=== PATIENT | female | born 1995 | race Native Hawaiian/Other Pacific Islander ===

== ENCOUNTER → 2019-10-11 | Outpatient (CLI) | payer BC ==
--- NOTE | 2019-10-11 13:59 | Diagnostic Imaging Report ---
INDICATION: Bilateral hip pain. TIME OF EXAM: 1:14 p.m. AP view of the pelvis and multiple views of the bilateral hips were obtained. FINDINGS: Femoroacetabular alignment is normal bilaterally. There appears to be some foreshortening of the femoral necks bilaterally. There is some slight flattening of the articular surfaces of the femoral heads. Findings are suggestive of bilateral hip dysplasia. There is some superior joint space narrowing bilaterally with some sclerosis of the acetabulum. No fractures are seen. Rami appear to be intact. The SI joints and symphysis are intact. IMPRESSION: Findings suggestive of bilateral hip dysplasia. No acute bony abnormality is detected. Dictated by: Dictated on workstation # [id number]
== END ==
LOC: RAD FS 13:25
PROVIDERS: ATTEND Nurse Practitioner
DX: Z00.00 Encounter for general adult medical examination without abnormal findings (principal); M25.551 Pain in right hip; M25.552 Pain in left hip
CPT/HCPCS: 73521

== ENCOUNTER 2020-04-20 09:22 | Emergency (ER) | payer SELFPAY ==
--- OUTSIDE RECORDS SUMMARY | 2020-04-20 09:26 | XMS REPORT ---
Author Author Dennis ROCHA DAI Organization [facility] Address [address] [place] [address] Care Team Providers Care Company Controller Name Role Phone DAI ROCHA Unavailable PROBLEMS Type Condition ICD9-CM Code [id number] Code Onset Dates Condition S tatus SNOMED Code Problem Dental examination Z01.20 Active 1 [id number] ALLERGIES No Known Allergies SOCIAL HISTORY Never Assessed PLAN OF CARE Activity Details Follow Up prn- needs to est. care Reas on: VITAL SIGNS Height 60 in 2016-11-29 Weight 120.8 lbs 2016-11-29 Temperature 98.1 degrees Fahrenheit 2016-11-29 Heart Rate 64 bpm 2016-11-29 Respiratory Rate 18 2016-11-29 BMI 23.59 kg/m2 2016-11-29 Blood pressure systolic 108 mmHg 2016-11-29 Blood pressure diastolic 64 mmHg 2016-11-29 MEDICATIONS Medication Instructions Dosage Frequency Start Date End Date Duration S tatus Aleve 220 MG Orally every 12 hrs 1 tablet as needed 12h Active RESULTS Name Result Date Reference Range INFLUENZA A & B (IN HOUSE) 2016-11-29 INFLUENZA A Negative INFLUENZA B Negative Control + Lot # [id number] Exp date 09/16/18 STREP A (IN HOUSE) 2016-11-29 STREP A Negative Control + Lot # [id number] Exp date 06/25/18 MUMPS PCR ([facility]- APPROVAL REQUIRED) MUMPS IgG 2016-11-29 Mumps Abs, IgG >300.0 Immune >10.9 MUMPS IgM 2016-11-29 Mumps Antibodies, IgM <0.80 0.00-0.79 PROCEDURES Procedure Date Ordered Result Body Site INFLUENZA ASSAY W/OPTIC Nov 29, 2016 STREP A ASSAY W/OPTIC Nov 29, 2016 MUMPS ANTIBODY Nov 29, 2016 VENIPUNCT, ROUTINE* Nov 29, 2016 IMMUNIZATIONS No Known Immunizations MEDICAL (GENERAL) HISTORY Type Description Date Medical History polio Surgical History bilateral hip surgery due to polio 2003 Hospitalization History post surgery 2003
--- OUTSIDE RECORDS SUMMARY | 2020-04-20 09:26 | XMS REPORT ---
Author Author Dennis CORADO [facility] Address [address] [place] [address] Care Team Providers Care Indirect Fire Infantryman Name Role Phone CONNIE CORADO Unavailable PROBLEMS Unknown Problems ALLERGIES Substance Reaction Event Type Date Status papaya rash Non Drug Allergy Dec, Active ENCOUNTERS Encounter Location Date Diagnosis [facility] [address] [address] Apr, Pain in right hip M25.551 an d Pain in left hip M25.552 [facility] [address] [phone] February, Diarrhea, unspecified type R 19.7 [facility] [address] [place] [address] Dec, Pre-employment health screening examinat ion Z02.1 [place] [address] [place] [id number] [place] [id number] Nov, [place] [address] [place] [id number] [place] [phone] Nov, Dental examination Z01.20 [facility] [address] [place] [place] [id number] [place] [phone] Nov, Acute parotitis K11.21 and M umps parotitis B26.9 IMMUNIZATIONS No Known Immunizations SOCIAL HISTORY Never Assessed REASON FOR VISIT PRE EMPLOYMENT PHYSICAL---elamfu/ma, and drug screen PLAN OF CARE Activity Details Follow Up prn Reason: Pending Test URINE DRUG SCREEN (IN HOUSE) VITAL SIGNS Height 61 in 2018-12-27 Weight 128 lbs 2018-12-27 Temperature 98.1 degrees Fahrenheit 2018-12-27 Heart Rate 70 bpm 2018-12-27 Respiratory Rate 18 2018-12-27 Oximetry 99 % 2018-12-27 BMI 24.18 kg/m2 2018-12-27 Blood pressure systolic 110 mmHg 2018-12-27 Blood pressure diastolic 64 mmHg 2018-12-27 MEDICATIONS Medication Instructions Dosage Frequency Start Date End Date Duration S boni Aleve 220 MG Orally every 12 hrs 1 tablet as needed 12h Active RESULTS No Results PROCEDURES Procedure Date Ordered Result Body Site DRUG TEST PRSMV DIR OPT OBS December 27, 2018 VISUAL ACUITY SCREEN December 27, 2018 INSTRUCTIONS MEDICATIONS ADMINISTERED No Known Medications MEDICAL (GENERAL) HISTORY Type Description Date Medical History polio Surgical History bilateral hip surgery due to polio 2003 Hospitalization History post surgery 2003
--- OUTSIDE RECORDS SUMMARY | 2020-04-20 09:26 | XMS REPORT ---
Author Author Dennis BUCK [facility] Address [address] [place] [address] Care Team Providers Care Marketing Information Coordinator Name Role Phone KONRAD BUCK Unavailable PROBLEMS Type Condition ICD9-CM Code [id number] Code Onset Dates Condition S tatus SNOMED Code Problem Dental examination Z01.20 Active 1 [id number] ALLERGIES No Known Allergies SOCIAL HISTORY Never Assessed PLAN OF CARE Activity Details Follow Up 1m Reason:dental new pt. est ablish care. VITAL SIGNS Blood pressure systolic 104 mmHg 2016-11-29 Blood pressure diastolic 64 mmHg 2016-11-29 MEDICATIONS Medication Instructions Dosage Frequency Start Date End Date Duration S tatus Aleve 220 MG Orally every 12 hrs 1 tablet as needed 12h Active RESULTS No Results PROCEDURES Procedure Date Ordered Result Body Site INTRAORL-PERIAPICAL 1 FILM [id number] Nov 29, 2016 PANORAMIC FILM SEE ALSO CODE [id number] Nov 29, 2016 Dental no charge Nov 29, 2016 IMMUNIZATIONS No Known Immunizations MEDICAL (GENERAL) HISTORY Type Description Date Medical History polio Surgical History bilateral hip surgery due to polio 2003 Hospitalization History post surgery 2003
--- OUTSIDE RECORDS SUMMARY | 2020-04-20 09:26 | XMS REPORT ---
Author Author Dennis ROCHA Organization [facility] Address [address] [place] [address] Care Team Providers Care Boring Machine Operator Name Role Phone DAI ROCHA Unavailable PROBLEMS Type Condition ICD9-CM Code ZLV71-ZR Code Onset Dates Condition S tatus SNOMED Code Problem Dental examination Z01.20 Active 1 [id number] ALLERGIES No Information SOCIAL HISTORY Never Assessed PLAN OF CARE VITAL SIGNS MEDICATIONS Unknown Medications RESULTS No Results PROCEDURES No Known procedures IMMUNIZATIONS No Known Immunizations MEDICAL (GENERAL) HISTORY Type Description Date Medical History polio Surgical History bilateral hip surgery due to polio 2003 Hospitalization History post surgery 2003
--- OUTSIDE RECORDS SUMMARY | 2020-04-20 09:26 | XMS REPORT | Continuity of Care Document ---
Demographics Preferred Language Unknown Marital Status Unknown Orthodoxy Affiliation Unknown Race Unknown Ethnic Group Unknown Author Organization Unknown Address Unknown Phone Unavailable Allergies There is no data. Medications There is no data. Problems There is no data. Procedures There is no data. Results Test Result Range Mumps Antibodies, IgG - 11/29/16 11:59 Mumps Abs, IgG >300.0 AU/mL Immune >10.9 Mumps Antibodies, IgM - 11/29/16 11:59 Mumps Antibodies, IgM <0.80 AU 0.00-0.7 9 COVID-19 ([facility]) - 03/19/20 18:35 Encounters ACCT No. Visit Date/Time Discharge Status Pt. Type Provider Facility Loc./Unit Complaint [id number] 11/30/2016 23:07:00 Document Registration [id number] 03/19/2020 17:20:00 03/19/2020 23:59: 59 CLS Outpatient [facility] [id number] 03/19/2020 17:20:00 Document Registration [id number] 10/11/2019 13:25:00 020 23:59:59 CLS Outpatient KYLE MACK APRN [facility] RAD FS Z00.00 M25.551
== END 2020-04-20 09:41 | disposition left against medical advice (07) ==
LOC: EDUNIT# 09:22 → ER 09:23
DX: R52 Pain, unspecified (principal)

== ENCOUNTER 2020-11-11 03:12 | Emergency (ER) | payer SELFPAY ==
[~2020-11-11] VITALS: Ht 157 cm; Wt 68.0 kg
[2020-11-11 03:24] VITALS: BP 118/67
[2020-11-11] MEDS ORDERED: KETOROLAC 30 MG/ML VIAL IM ONE (03:45)
[2020-11-11] MEDS ORDERED: ORPHENADRINE 60 MG/2 ML (NORFLEX) AMP (ED ONLY) IM ONE (03:45)
[2020-11-11 03:53] LABS: BILIRUBIN,URINE NEGATIVE (NEGATIVE); CLARITY,URINE SL CLOUDY; COLOR,URINE YELLOW; GLUCOSE, URINE (UA) NEGATIVE (NEGATIVE); KETONES,URINE NEGATIVE (NEGATIVE); LEUKOCYTE ESTERASE ,URINE TRACE (NEGATIVE); NITRITE,URINE NEGATIVE (NEGATIVE); PROTEIN,URINE NEGATIVE (NEGATIVE)
[2020-11-11 04:17] LABS: BACTERIA,URINE FEW /HPF; RBC,URINE 0-2 /HPF
[2020-11-11] MEDS ORDERED: CEPH-38 PO (04:31)
[2020-11-11] MEDS ORDERED: PRD20T PO (04:31)
--- NOTE | 2020-11-11 04:31 | ED Back Pain ---
General Chief Complaint: Back Problems Stated Complaint: BACK PROBLEMS,LOWER BACK & HIPS & LEFT LEG Nursing Triage Note: TO ED VIA POV AND AMBULATORY TO ROOM 6 WITH C/O LOWER BACK PAIN THAT IS WORSE ON RIGHT SIDE AND PAIN DOWN BOTH LEGS ONGOING FOR A MONTH. Nursing Sepsis Screen: No Definite Risk Source of Information: Patient Exam Limitations: No Limitations History of Present Illness Date Seen by Provider: Nov 11, 2020 Time Seen by Provider: 03:25 Initial Comments This 25-year-old young lady presents to the emergency room with complaints of lower back pain particularly on the right that radiates down into the thighs bilaterally, right greater than left. She reports having significant hip problems as a child requiring multiple surgeries bilaterally. She does not recall what exactly her condition was. She reports her pain has been present for about a month and is escalating. She was not able to sleep tonight. She denies any bowel or bladder dysfunction, groin numbness, or true leg weakness. Allergies and Home Medications Allergies Coded Allergies: No Known Drug Allergies (Unverified , 11/11/20) Home Medications Cephalexin Monohydrate 500 Mg Capsule, 1 EACH PO TID Prescribed by: JESSY LANGSTON on 11/11/201 Prednisone 20 Mg Tab, 20 MG PO DAILY Prescribed by: JESSY LANGSTON on 11/11/20 0431 Patient Home Medication List Home Medication List Reviewed: Yes Review of Systems Constitutional: no symptoms reported EENTM: no symptoms reported Respiratory: no symptoms reported Cardiovascular: no symptoms reported Gastrointestinal: no symptoms reported Genitourinary: no symptoms reported : No Musculoskeletal: see HPI Skin: no symptoms reported Psychiatric/Neurological: See HPI Past Bimkfoa-Guxqaj-Ayeuof Hx Past Med/Social Hx: Reviewed Nursing Past Med/Soc Hx Patient Social History Alcohol Use: Occasionally Uses Smoking Status: Current Everyday Smoker Type Used: Electronic/Vapor Recent Infectious Disease Expo: No Past Medical History Surgeries: Yes (HIP SX) Respiratory: No Cardiac: No Neurological: No : No Genitourinary: No Gastrointestinal: No Musculoskeletal: No Endocrine: No HEENT: No Cancer: No Psychosocial: No Blood Disorders: No Physical Exam Vital Signs Vital Signs - First Documented 11/11/20 03:24 Temp 37.1 Pulse 91 Resp 16 B/P (MAP) 118/67 (84) O2 Delivery Room Air Capillary Refill : Less Than 3 Seconds Height, Weight, BMI Height: '" Weight: lbs. oz. kg; 27.00 BMI Method: General Appearance: WD/WN, Mild Distress HEENT: PERRL/EOMI, Normal ENT Inspection Neck: Normal Inspection Cardiovascular: Regular Rate, Rhythm, No Edema, No Murmur Respiratory: Lungs Clear, Normal Breath Sounds, No Accessory Muscle Use Gastrointestinal: Normal Bowel Sounds, Non Tender, Soft Back: Normal Inspection, Other (Tenderness over the lower lumbar spine and the right SI joint region) Extremity: Normal Inspection, No Pedal Edema Neurologic/Psychiatric: Alert, Oriented x3, No Motor/Sensory Deficits, Normal Mood/Affect, adult crossing guard II-XII Norm as Tested Skin: Normal Color, Warm/Dry Progress/Results/Core Measures Results/Orders Lab Results Laboratory Tests Test 11/11/20 03:45 Range/Units Urine Color YELLOW Urine Clarity SL CLOUDY Urine pH 6.0 5-9 Urine Specific [place] 1.015 L 1.016-1.022 Urine Protein NEGATIVE NEGATIVE Urine Glucose (UA) NEGATIVE NEGATIVE Urine Ketones NEGATIVE NEGATIVE Urine Nitrite NEGATIVE NEGATIVE Urine Bilirubin NEGATIVE NEGATIVE Urine Urobilinogen 0.2 < = 1.0 MG/DL Urine Leukocyte Esterase TRACE H NEGATIVE Urine RBC (Auto) TRACE-I NEGATIVE Urine RBC 0-2 /HPF Urine WBC 5-10 H /HPF Urine Squamous Epithelial Cells 5-10 /HPF Urine Crystals NONE /LPF Urine Bacteria FEW H /HPF Urine Casts NONE /LPF Urine Mucus NEGATIVE /LPF Urine Culture Indicated YES My Orders Orders - JESSY CHU MD Ketorolac Injection (Toradol Injection) (11/11/20 03:45) Orphenadrine Inj (Ed Only) (Norflex Inje (11/11/20 03:45) Ua Culture If Indicated (11/11/20 03:36) Urine Bedside (11/11/20 03:36) Urine Culture (11/11/20 03:45) Medications Given in ED Current Medications Medications Dose Ordered Sig/Jacob Route Start Time Stop Time Status Last Admin Dose Admin Ketorolac Tromethamine 30 mg ONCE ONCE IM 11/11/20 03:45 11/11/20 03:46 DC 11/11/20 03:51 30 MG Orphenadrine Citrate 60 mg ONCE ONCE IM 11/11/20 03:45 11/11/20 03:46 DC 11/11/20 03:50 60 MG Vital Signs/I&O 11/11/20 03:24 Temp 37.1 Pulse 91 Resp 16 B/P (MAP) 118/67 (84) O2 Delivery Room Air Blood Pressure Mean: 84 Progress Progress Note : Progress Note Patient was treated with Norflex and Toradol IM with good improvement. See discharge instructions. Departure Impression Primary Impression: Lumbar radiculopathy Additional Impressions: Urinary tract infection Qualified Codes: N39.0 - Urinary tract infection, site not specified Low back pain Qualified Codes: M54.42 - Lumbago with sciatica, left side; M54.41 - Lumbago with sciatica, right side Disposition: HOME, SELF-CARE Condition: Improved Departure-Patient Inst. Decision time for Depature: 04:27 Referrals: NO,LOCAL PHYSICIAN (PCP/Family) Primary Care Physician Patient Instructions: Radiculopathy, Low Back Pain ED Add. Discharge Instructions: You may use a combination of ibuprofen up to 600 mg every 6 hours and Tylenol (acetaminophen) up to 1000 mg every 6 hours as needed for pain. Take prednisone as prescribed early in the day with food or milk to avoid stomach irritation and sleep disturbance. Complete your antibiotic as prescribed. Establish with a primary care provider soon as possible and discuss further treatment and work-up of your lower back pain if it does not resolve with steroid treatment. Call with questions or concerns. Return to the emergency room if you have worsening symptoms, especially if you develop numbness in your groin, leg weakness, or difficulty controlling bowels or bladder. All discharge instructions reviewed with patient and/or family. Voiced understanding. Scripts Prednisone (Prednisone) 20 Mg Tab 20 MG PO DAILY, #4 TAB 0 Refills Prov: JESSY CHU MD 11/11/20 Cephalexin Monohydrate (Keflex) 500 Mg Capsule 1 EACH PO TID, #15 CAP Prov: JESSY CHU MD 11/11/20 JESSY CHU MD Nov 11, 2020 04:31
== END 2020-11-11 04:40 | disposition home or self-care (01) ==
LOC: EDUNIT# 03:12 → ER 03:16
DX: M54.16 Radiculopathy, lumbar region (principal); N39.0 Urinary tract infection, site not specified; F17.290 Nicotine dependence, other tobacco product, uncomplicated
CPT/HCPCS: 81000; 84703; 87088; 99284

== ENCOUNTER 2022-02-22 19:13 | Emergency (ER) | payer SELFPAY ==
[~2022-02-22] VITALS: Ht 157 cm; Wt 67.9 kg
[~2022-02-22 19:13] MED LIST: CEPH-38 PO; PRD20T PO
[2022-02-22] MEDS ORDERED: MELO-170 PO (20:43)
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
[2022-02-22 21:28] VITALS: BP 126/89
== END 2022-02-22 21:32 | disposition home or self-care (01) ==
LOC: EDUNIT# 19:13 → ER 19:15
DX: M24.812 Other specific joint derangements of left shoulder, not elsewhere classified (principal)
CPT/HCPCS: 73030

== ENCOUNTER 2023-02-13 04:08 | Emergency (ER) | payer SELFPAY ==
[~2023-02-13] VITALS: Ht 155 cm; Wt 68.0 kg
[~2023-02-13 04:08] MED LIST changes: +MELO-170 PO
[2023-02-13 04:16] VITALS: BP 110/74
[2023-02-13] MEDS ORDERED: LIDOCAINE 1% INJ 20 ML VIAL IJ STA (04:30)
[2023-02-13] MEDS ORDERED: TETANUS,DIPTH,PERTUSS P/F (BOOSTRIX) 0.5 ML VIAL IM ONE (04:30)
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
[2023-02-13] MEDS ORDERED: AMOX1TAB12 PO (04:41)
[2023-02-13] MEDS ORDERED: AUGMENTIN 875 MG TAB (AMOXICILLIN/CLAVULANATE) PO STA (04:43)
[2023-02-13] MEDS ORDERED: AUGMENTIN 875 MG TAB (AMOXICILLIN/CLAVULANATE) ONE (04:44)
--- NOTE | 2023-02-13 06:13 | Diagnostic Imaging Report ---
FOREARM, RIGHT, 2 VIEWS INDICATION: Right forearm pain COMPARISON: None available. TECHNIQUE: 2 views of right forearm FINDINGS: No acute fracture. The alignment is normal. No radiopaque foreign body. IMPRESSION: No acute osseous abnormalities performed. Dictated by: Dictated on workstation # [id number]
--- NOTE | 2023-02-13 06:14 | Diagnostic Imaging Report ---
HAND, RIGHT, 3 VIEWS COMPARISON: None available. INDICATION: Hand pain TECHNIQUE: PA, oblique and lateral views of the hand. FINDINGS: No fracture or traumatic malalignment. No radiopaque foreign body. Joint spaces are well-maintained. IMPRESSION: 1. No acute fracture or malalignment. Dictated by: Dictated on workstation # [id number]
== END 2023-02-13 05:31 | disposition home or self-care (01) ==
LOC: EDUNIT# 04:08 → ER 04:13
DX: S61.411A Laceration without foreign body of right hand, initial encounter (principal); S51.811A Laceration without foreign body of right forearm, initial encounter; Z23 Encounter for immunization; Z28.310 Unvaccinated for COVID-19; X58.XXXA Exposure to other specified factors, initial encounter; Y04.0XXA Assault by unarmed brawl or fight, initial encounter
CPT/HCPCS: 12002; 73090; 73130; 90715

== ENCOUNTER 2023-03-06 08:50 | Emergency (ER) | payer SELFPAY ==
[~2023-03-06] VITALS: Ht 157 cm; Wt 68.0 kg
[~2023-03-06 08:50] MED LIST changes: +AMOX1TAB12 PO
[2023-03-06 09:03] VITALS: BP 122/82
== END 2023-03-06 09:04 | disposition home or self-care (01) ==
LOC: EDUNIT# 08:50 → ER 08:51
DX: Z48.02 Encounter for removal of sutures (principal)

== ENCOUNTER 2023-08-15 13:53 | Emergency (ER) | payer SELFPAY ==
[~2023-08-15] VITALS: Ht 154.9 cm; Wt 63.5 kg
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
[2023-08-15] MEDS ORDERED: KETOROLAC INJ 30 MG/ML VIAL IM ONE (14:30)
[2023-08-15] MEDS ORDERED: ORPHENADRINE 60 MG/2 ML AMP (ED ONLY) IM ONE (14:30)
[2023-08-15 14:49] VITALS: BP 111/65
== END 2023-08-15 14:49 | disposition home or self-care (01) ==
LOC: EDUNIT# 13:53 → ER 13:55
DX: M54.2 Cervicalgia (principal); F17.290 Nicotine dependence, other tobacco product, uncomplicated
CPT/HCPCS: 96372; 99284